=== PATIENT | female | born 1945 | race Hispanic/Latino ===

== ENCOUNTER 2019-01-01 14:06 | Inpatient (IN) | payer OTHER, MEDICARE | END 2019-01-07 17:30 | LOC: EDH 14:06 → EDHIP 16:25 → 4AH 17:25 | PROC: 0QS934Z Reposition Left Femoral Shaft with Internal Fixation Device, Percutaneous Approach (ICD-10-PCS; principal; 2019-01-01 19:38) | PROC: 0JBM0ZZ Excision of Left Upper Leg Subcutaneous Tissue and Fascia, Open Approach (ICD-10-PCS; 2019-01-01 19:38) | DX: S72.92XA Unspecified fracture of left femur, initial encounter for closed fracture (principal) ==

== ENCOUNTER → 2020-11-14 | Outpatient (CLI) | payer OTHER, MEDICARE ==
[~2020-11-14] MED LIST: SIMV-46 PO
== END | disposition home or self-care (01) ==
LOC: SHCH 09:42
PROVIDERS: ATTEND Internal Medicine Cardiovascular Disease
DX: R06.09 Other forms of dyspnea (principal)
CPT/HCPCS: 93306; 93356

== ENCOUNTER 2021-07-29 05:52 | Observation (INO) | payer OTHER, MEDICARE ==
[2021-07-25 10:19] LABS: BASOPHILS % (AUTO) 0.9 % (0.0-5.0); EOSINOPHILS % (AUTO) 1.4 % (0.0-8.0); HEMATOCRIT 38.6 % (36-48); LYMPHOCYTES % (AUTO) 29.6 % (21.0-51.0); MEAN CORPUSCULAR HEMOGLOBIN 32.3 pg (27.0-33.0); MEAN CORPUSCULAR HGB CONC 33.7 g/dL (32.0-36.0); MEAN CORPUSCULAR VOLUME 95.8 fL (79-99); MONOCYTES % (AUTO) 10.6 % (3.0-13.0); NEUTROPHILS % (AUTO) 57.3 % (40.0-77.0); PLATELET COUNT (AUTO) 229 K/uL (130-400); RED BLOOD CELL COUNT(AUTO) 4.03 MIL/uL (4.00-5.50); RED CELL DISTRIBUTION WIDTH 11.9 % (11.0-15.5); WHITE BLOOD COUNT (AUTO) 5.9 K/uL (4.8-10.8)
[2021-07-25 10:39] LABS: INR 1.04 (0.85-1.15); PROTHROMBIN TIME 11.3 SEC (9.6-11.6)
[2021-07-25 10:41] LABS: CREATININE 0.7 mg/dL (0.5-1.5); POTASSIUM 4.3 mmol/L (3.5-5.1)
[2021-07-25 11:13] LABS: APPEARANCE,URINE Clear (CLEAR); BILIRUBIN,URINE Negative (NEGATIVE); COLOR,URINE Yellow (YELLOW); GLUCOSE, URINE (UA) Negative (NEGATIVE); KETONES,URINE Negative (NEGATIVE); LEUKOCYTE ESTERASE ,URINE Small (NEGATIVE); NITRATE,URINE Negative (NEGATIVE); OCCULT BLOOD,URINE Negative (NEGATIVE); PH,URINE 5.5 (5.0-8.0); PROTEIN,URINE Negative (NEGATIVE); UROBILINOGEN,URINE 0.2 mg/dL (0.2-1.0)
[2021-07-25 12:02] LABS: BACTERIA,URINE Rare /HPF (None Seen); RBC,URINE None Seen /HPF (0-1); SQUAMOUS EPITHELIAL CELL,UR None Seen /HPF (0-2)
[2021-07-25 14:08] VITALS: BP 148/71
[2021-07-29] VITALS (20 sets, daily range): BP systolic 100–157; BP diastolic 51–87
[~2021-07-29 05:52] MED LIST changes: +AEC81 PO; +LISI20TA24 PO; +METO-408 PO
[2021-07-29] MEDS ORDERED: LACTATED RINGERS 1000ML 1,000 ML IV ONE (07:03)
[2021-07-29] MEDS: CEFAZOLIN SODIUM 1 GM VIAL IVP SCH ×5 (07:23→23:48)
[2021-07-29] MEDS ORDERED: CEFAZOLIN SODIUM 1 GM VIAL ONE (07:41)
[2021-07-29] MEDS ORDERED: TRANEXAMIC ACID 1000MG/10ML ONE (07:41)
[2021-07-29] MEDS ORDERED: PROPOFOL 10 MG/ML 20ML VIAL IV ONE (08:13)
[2021-07-29] MEDS ORDERED: ROCURONIUM 10MG/1ML SYR 10 MG/ML ML ONE (08:13)
[2021-07-29] MEDS ORDERED: SUCCINYLCHOLINE CHLORIDE 20 MG/ML 10 ML VIAL ONE (08:13)
[2021-07-29] MEDS ORDERED: LIDOCAINE HCL-MPF 1% 5ML AMP IJ ONE (08:13)
[2021-07-29] MEDS ORDERED: MIDAZOLAM HCL 1 MG/ML 2ML VIAL ONE (08:13)
[2021-07-29] MEDS ORDERED: FENTANYL CITRATE PF 50 MCG/1 ML 2ML VIAL ONE (08:14)
[2021-07-29] MEDS ORDERED: ROPIVACAINE 0.5% 5MG/ML 30ML IJ ONE (08:23)
[2021-07-29] MEDS ORDERED: EPHEDRINE SULFATE 50 MG/ML AMPULE ONE (08:43)
[2021-07-29] MEDS ORDERED: CEFAZOLIN SODIUM 1 GM VIAL IRRIG ONE (09:27)
[2021-07-29] MEDS ORDERED: ONDANSETRON 4MG INJ IVP PRN (10:00)
[2021-07-29] MEDS ORDERED: FERROUS FUMARATE 324 MG TABLET PO PRN (10:00)
[2021-07-29] MEDS ORDERED: DiphenhydrAMINE HCL 50 MG/ML VIAL IVP PRN (10:00)
[2021-07-29] MEDS ORDERED: POTASSIUM CHLORIDE 20MEQ/100ML 100 ML IV PRN (10:00)
[2021-07-29] MEDS ORDERED: TRAMADOL HCL 50 MG TABLET PO PRN (10:00)
[2021-07-29] MEDS ORDERED: LIDOCAINE HCL-MPF 1% 2ML VIAL IV PRN (10:00)
[2021-07-29] MEDS ORDERED: CALCIUM CARB 500MG PO PRN (10:00)
[2021-07-29] MEDS ORDERED: OXYCODONE HCL 5 MG TAB PO PRN ×2 (10:00)
[2021-07-29] MEDS: ACETAMINOPHEN 500 MG TABLET PO SCH ×3 (10:00→23:48)
[2021-07-29] MEDS ORDERED: KETOROLAC 15MG/ML VIAL (15MG/ML) IV PRN (10:00)
[2021-07-29] MEDS ORDERED: POTASSIUM CHLORIDE 10% ELIXIR 20 MEQ/15 ML UDCUP PO PRN (10:00)
[2021-07-29] MEDS: 0.9%NACL 1000ML 1,000 ML IV SCH ×3 (12:22→16:45)
[2021-07-29] MEDS ORDERED: ASPIRIN 81 MG EC TAB ONE (19:26)
[2021-07-29] MEDS ORDERED: SIMVASTATIN 20 MG TABLET ONE (19:26)
[2021-07-29] MEDS ORDERED: CELECOXIB 200 MG CAP ONE (19:26)
[2021-07-29] MEDS: ASPIRIN 81 MG EC TAB PO SCH (20:32)
[2021-07-29] MEDS: FAMOTIDINE 20MG TAB PO SCH (20:32)
[2021-07-29] MEDS: SIMVASTATIN 20 MG TABLET PO SCH (20:33)
[2021-07-29] MEDS: CELECOXIB 200 MG CAP PO SCH (20:33)
[2021-07-30] VITALS (7 sets, daily range): BP systolic 115–139; BP diastolic 51–76
[2021-07-30 04:12] LABS: HEMATOCRIT 35.1 % (36-48); MEAN CORPUSCULAR HEMOGLOBIN 31.2 pg (27.0-33.0); MEAN CORPUSCULAR HGB CONC 32.8 g/dL (32.0-36.0); MEAN CORPUSCULAR VOLUME 95.1 fL (79-99); RED BLOOD CELL COUNT(AUTO) 3.69 MIL/uL (4.00-5.50); RED CELL DISTRIBUTION WIDTH 11.9 % (11.0-15.5); WHITE BLOOD COUNT (AUTO) 8.6 K/uL (4.8-10.8)
[2021-07-30 04:19] LABS: CREATININE 0.9 mg/dL (0.5-1.5); POTASSIUM 3.8 mmol/L (3.5-5.1)
[2021-07-30] MEDS: KCL 20 MEQ ERTAB PO PRN ×2 (06:04→09:30)
[2021-07-30] MEDS: ASPIRIN 81 MG EC TAB PO SCH ×3 (09:00→19:51)
[2021-07-30] MEDS: POLYETHYLENE GLYCOL 3350 17 GM POWD.PACK PO SCH (09:30)
[2021-07-30] MEDS: LISINOPRIL 20 MG TABLET PO SCH (09:31)
[2021-07-30] MEDS: CELECOXIB 200 MG CAP PO SCH ×2 (09:32→19:52)
[2021-07-30] MEDS: ACETAMINOPHEN 500 MG TABLET PO SCH ×2 (09:32→17:23)
[2021-07-30] MEDS: FAMOTIDINE 20MG TAB PO SCH ×2 (09:32→19:52)
[2021-07-30] MEDS: CEFAZOLIN SODIUM 1 GM VIAL IVP SCH (18:04)
[2021-07-30] MEDS: SIMVASTATIN 20 MG TABLET PO SCH (19:51)
[2021-07-31] MEDS: ACETAMINOPHEN 500 MG TABLET PO SCH ×2 (03:32→08:44)
[2021-07-31 04:39] VITALS: BP 115/59
[2021-07-31 07:58] VITALS: BP 135/67
[2021-07-31] MEDS: LISINOPRIL 20 MG TABLET PO SCH (08:44)
[2021-07-31] MEDS: CELECOXIB 200 MG CAP PO SCH (08:44)
[2021-07-31] MEDS: ASPIRIN 81 MG EC TAB PO SCH ×2 (08:44→08:45)
[2021-07-31] MEDS: FAMOTIDINE 20MG TAB PO SCH (08:44)
[2021-07-31] MEDS: POLYETHYLENE GLYCOL 3350 17 GM POWD.PACK PO SCH (08:44)
[2021-07-31] MEDS ORDERED: METOPROLOL SUCCINATE 50 MG TAB.SR.24H PO SCH (09:00)
[2021-07-31] MEDS ORDERED: AEC81 PO (09:30)
[2021-07-31] MEDS ORDERED: TRAM50TA4 PO (09:30)
[2021-07-31 10:41] VITALS: BP 126/60
[2021-07-31 16:37] VITALS: BP 120/75
[2021-08-01] MEDS ORDERED: BISACODYL 10 MG SUPP.RECT RC PRN (10:00)
== END 2021-07-31 17:01 ==
LOC: DAH 05:52 → DAHIP 05:53 → 4BH 11:30
PROVIDERS: ADMIT Orthopaedic Surgery; ATTEND Orthopaedic Surgery
DX: M23.52 Chronic instability of knee, left knee (principal); Z20.822 Contact with and (suspected) exposure to COVID-19; T84.098A Other mechanical complication of other internal joint prosthesis, initial encounter; M67.20 Synovial hypertrophy, not elsewhere classified, unspecified site; M23.8X2 Other internal derangements of left knee; D62 Acute posthemorrhagic anemia; E78.5 Hyperlipidemia, unspecified; I10 Essential (primary) hypertension; I25.10 Atherosclerotic heart disease of native coronary artery without angina pectoris; Z96.653 Presence of artificial knee joint, bilateral; Z79.899 Other long term (current) drug therapy
CPT/HCPCS: 20680; 27335; 27486; 36415 ×2; 80048 ×2; 81001; 85025; 85027; 85610; 87088; 87635; 87641; 96374; 96376; 97039 ×5; 97116 ×5; 97161; 97530 ×4; A4215; A4221; A4222; A4223; A4649 ×4; A4663; A4930 ×2; A9272; C1776; C9803; G0378 ×51; J0330; J0690 ×5; J2250; J2704; J2795; J3010; J3490 ×3; J7120 ×2

== ENCOUNTER → 2022-05-14 | Outpatient (CLI) | payer MEDICARE ==
[~2022-05-14] MED LIST changes: +TRAM50TA4 PO
== END | disposition home or self-care (01) ==
LOC: RAH 15:50
PROVIDERS: ATTEND Internal Medicine
DX: M19.011 Primary osteoarthritis, right shoulder (principal); M79.601 Pain in right arm
CPT/HCPCS: 73030

== ENCOUNTER → 2023-09-16 | Outpatient (CLI) | payer OTHER | END | disposition home or self-care (01) | LOC: RAH 13:40 | PROVIDERS: ATTEND Orthopaedic Surgery | DX: Z96.652 Presence of left artificial knee joint (principal) | CPT/HCPCS: 73700 ==

== ENCOUNTER 2024-05-18 07:51 | Emergency (ER) | payer OTHER, MEDICARE ==
[~2024-05-18] VITALS: Ht 170.2 cm; Wt 77.1 kg
[2024-05-18 08:28] LABS: BASOPHILS # (AUTO) 0.03 K/uL (0.00-0.20); BASOPHILS % (AUTO) 0.3 % (0.0-5.0); EOSINOPHILS # (AUTO) 0.11 K/uL (0.00-0.70); EOSINOPHILS % (AUTO) 1.1 % (0.0-8.0); HEMATOCRIT 39.9 % (36-48); IMMATURE GRANULOCYTE ABSOLUTE 0.03 K/uL (0-1); LYMPHOCYTES # (AUTO) 2.3 K/uL (1.0-4.8); LYMPHOCYTES % (AUTO) 22.2 % (21.0-51.0); MEAN CORPUSCULAR HEMOGLOBIN 32.6 pg (27.0-33.0); MEAN CORPUSCULAR HGB CONC 33.3 g/dL (32.0-36.0); MEAN CORPUSCULAR VOLUME 97.8 fL (79-99); MONOCYTES # (AUTO) 0.3 K/uL (0.1-1.0); MONOCYTES % (AUTO) 2.7 % (3.0-13.0); NEUTROPHILS # (AUTO) 7.4 K/uL (1.8-7.7); NEUTROPHILS % (AUTO) 73.4 % (40.0-77.0); PLATELET COUNT (AUTO) 233 K/uL (130-400); RED BLOOD CELL COUNT(AUTO) 4.08 MIL/uL (4.00-5.50); RED CELL DISTRIBUTION WIDTH 11.6 % (11.0-15.5); WHITE BLOOD COUNT (AUTO) 10.1 K/uL (4.8-10.8)
[2024-05-18] MEDS: 0.9% NACL 500ML IV.SOLN 500 ML IV SCH (08:28)
[2024-05-18 08:54] LABS: ALBUMIN 3.9 g/dL (3.5-5.0); BILIRUBIN,TOTAL 0.8 mg/dL (0.2-1.0); CREATININE 1.1 mg/dL (0.5-1.0); POTASSIUM 3.8 mmol/L (3.5-5.1); TOTAL PROTEIN, SERUM 7.1 g/dL (6.0-8.3)
[2024-05-18] MEDS: acetaMINOPHEN 500 MG TABLET PO ONE (08:56)
[2024-05-18] MEDS: 0.9%NACL 1000ML 1,000 ML IV SCH (09:53)
[2024-05-18] MEDS: ONDANSETRON 4MG INJ IVP ONE (09:53)
[2024-05-18] MEDS: cefTRIAXone 1G VIAL IVPB ONE (09:53)
[2024-05-18] MEDS ORDERED: ACID1GRA4 PO (12:35)
[2024-05-18] MEDS ORDERED: METR-172 PO (12:35)
[2024-05-18] MEDS ORDERED: ONDA-243 PO (12:35)
[2024-05-18 13:11] VITALS: BP 125/47; PULSE 63; RESP 18; O2SAT 98
== END 2024-05-18 13:53 | disposition home or self-care (01) ==
LOC: EDH 07:51
DX: A05.9 Bacterial foodborne intoxication, unspecified (principal); E86.0 Dehydration; K52.29 Other allergic and dietetic gastroenteritis and colitis; I95.9 Hypotension, unspecified; E78.00 Pure hypercholesterolemia, unspecified; I10 Essential (primary) hypertension; Z90.710 Acquired absence of both cervix and uterus; Z79.899 Other long term (current) drug therapy
CPT/HCPCS: 99285; 96374; 96375; 84484; 80053; 83690; 85025; 87040; 83605 ×2; 36415; 74018; 93005; J0696; J2405

== ENCOUNTER → 2025-02-14 | Outpatient (CLI) | payer OTHER, MEDICAID ==
[~2025-02-14] MED LIST changes: +ACID1GRA4 PO; +ATOR40TA69 PO; +IBUP-2076 PO; +METR-172 PO; +ONDA-243 PO
--- NOTE | 2025-02-14 16:19 | HMCIMG ---
CT UPPER EXT W/O CONTRAST HISTORY: Right shoulder bone disorder COMPARISON: None TECHNIQUE: Multiple sequential axial images of the right shoulder were obtained including post processing sagittal and coronal reconstruction images. Patient was not given contrast through intravenous route. FINDINGS: Erosive changes are seen with lytic lesion in the medial aspect of the right proximal humerus near the region of glenohumeral joint measuring 16 x 15 mm. Bone osteopenia is seen. Joint space narrowing is seen. No acute displaced fracture or dislocation is seen. IMPRESSION: 1. Lucent lesion measuring 16 x 15 mm at the inferior aspect of the right humerus in the region of glenohumeral joint. No acute displaced fracture or dislocation is seen. Degenerative changes are seen. CT was performed with one or more following dose reduction techniques: automated exposure control, adjustment of the mA and kv according to patient's size, or use of a iterative reconstruction technique.
== END | disposition home or self-care (01) ==
LOC: RAH 10:23
PROVIDERS: ATTEND Orthopaedic Surgery
DX: M19.011 Primary osteoarthritis, right shoulder (principal); M85.88 Other specified disorders of bone density and structure, other site; M25.811 Other specified joint disorders, right shoulder
CPT/HCPCS: 73200

== ENCOUNTER 2025-05-02 05:57 | Observation (INO) | payer OTHER, MEDICAID ==
[2025-05-01 10:57] LABS: IMMATURE GRANULOCYTE ABSOLUTE 0.02 K/uL (0-1); NUCLEATED RED BLOOD CELLS 0.0 % (0.0-0.19); PLATELET COUNT (AUTO) 215 K/uL (130-400); RED BLOOD CELL COUNT(AUTO) 3.81 MIL/uL (4.00-5.50); RED CELL DISTRIBUTION WIDTH 11.9 % (11.0-15.5); WHITE BLOOD COUNT (AUTO) 6.7 K/uL (4.8-10.8)
[2025-05-01 11:01] LABS: APPEARANCE,URINE CLEAR (CLEAR); GLUCOSE, URINE (UA) NEGATIVE (NEGATIVE); LEUKOCYTE ESTERASE ,URINE NEGATIVE Leu/uL (NEGATIVE); NITRATE,URINE NEGATIVE (NEGATIVE); OCCULT BLOOD,URINE NEGATIVE (NEGATIVE)
[2025-05-01 11:02] LABS: ADD UA MICROSCOPIC NO
[2025-05-01 11:05] LABS: CREATININE 0.6 mg/dL (0.5-1.0); GLOMERULAR FILTR. RATE CALC 90.0 mL/min (>90); GLUCOSE,RANDOM 104.0 mg/dL (70-105); SODIUM SERUM 143.0 mmol/L (136-145); UREA NITROGEN, BLOOD 11.0 mg/dL (7-18)
[2025-05-01 11:25] LABS: INR 1.0 (0.85-1.15)
[2025-05-01 11:41] VITALS: BP 142/55; PULSE 59; RESP 16; TEMP 97.9
[2025-05-02] VITALS (23 sets, daily range): BP systolic 108–155; BP diastolic 70–91; PULSE 56–105; RESP 15–20; TEMP 97.4–98.5; O2SAT 94–96
[~2025-05-02] VITALS: Ht 157.5 cm; Wt 67.9 kg
--- NOTE | 2025-05-02 06:40 | EKG ---
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
[2025-05-02] MEDS ORDERED: GLYCOPYRROLATE 0.2 MG/ML 5 ML VIAL ONE (07:16)
[2025-05-02] MEDS ORDERED: NEOSTIGMINE METHYLSULFATE 1MG/ML IV ONE (07:16)
[2025-05-02] MEDS ORDERED: LIDOCAINE PF 100MG/5ML (2%) SYRINGE 5ML ONE (07:16)
[2025-05-02] MEDS ORDERED: SUCCINYLCHOLINE CHLORIDE 20 MG/ML 10 ML VIAL ONE (07:16)
[2025-05-02] MEDS ORDERED: MIDAZOLAM HCL 1 MG/ML 2ML VIAL ONE (07:17)
[2025-05-02] MEDS: TRANEXAMIC ACID 1000MG/10ML ONE ×2 (08:20→11:52)
--- NOTE | 2025-05-02 11:23 | OP ---
Operative Note: DATE OF PROCEDURE: 05/02/25 SURGEON: STEVEN QUINN MD ELECTRICIAN WIRING: [Brad Greer [facility]; Yadi Contreras CFA] ANESTHESIA: [General anesthesia plus regional block] ANESTHESIOLOGIST/SWITCHBOARD RECEPTIONIST: [Rock Smith CRNA] PREOPERATIVE DIAGNOSIS: [Right shoulder osteoarthritis, avascular necrosis humeral head] POSTOPERATIVE DIAGNOSIS: [Same] IMPLANTS: [Biomet comprehensive shoulder. Humeral stem size 12 mm. Humeral head size 42 x 19 mm. Glenoid size 3 with a titanium glenoid peg] PROCEDURE: [Primary right total shoulder arthroplasty] ESTIMATED BLOOD LOSS: [150 mL] INDICATIONS: [The patient is an 80-year-old female with a long history of pain to the right shoulder that has been present and has been treated conservatively. The patient had an study when she came to our office and we noticed that there was what seems to be a lesion in the inferior hemisphere of the articular surface. Further started revealed that this was a necrotic area of bone compatible with avascular necrosis. Patient has been admitted for a primary versus reverse total shoulder arthroplasty. Procedure understood, risks, b enefits and possible complications and she agreed to sign the consent form] DESCRIPTION OF PROCEDURE: [After adequate general anesthesia was achieved and regional block obtained the patient was placed in the beach chair position and the right upper extremity was prepped and draped in the usual manner. After identification of the bony landmarks and incision was carried down in the anterior aspect of the shoulder following the deltopectoral line through the skin followed by dissection of the subcutaneous tissue. After identification of the cephalic vein the deltopectoral space was developed and we proceeded to dissect the 2 muscles and retract them to enter into the space identifying the clavipectoral fascia which was incised just lateral to the short head of the biceps and directed superiorly and inferiorly. With the arm in a slight abduction and with a Cao retractor elevating the deltoid muscle were able to identify the subscapularis tendon and the insertion of the pectoralis muscle at the humerus as well as the circumflex vessels in the inferior border of the subscapularis. The vessels were ligated with two #1 Vicryl stitches at the most lateral aspect of the subscapularis. The 1 cm superior portion of the pectoralis tendon insertion was cut leaving a small cuff of tendon and we then proceeded to open the long head of the biceps tendon sheath pulling then the tendon and applying two #2 Ethibond sutures through it and then tying it to the pectoralis cuff for a soft tissue tenodesis. The tendon was then cut proximal to this tenodesis and we followed the tendon proximally cutting through the tendon sheath all the way to the bicipital groove removing then the tendon at this level. At this point we proceeded then to peel of the subscapularis tendon of the lesser tuberosity while at the same time externally rotating the arm exposing the humeral head and proceeded with the dissection all the way to the posterior aspect of the humeral head using the Bovie cautery. A tag suture with #1 Ethibond stitch was applied to the superolateral corner of the subscapularis previous to the detachment. At this point the humeral head was presented through the wound by externally rotating the arm further and extending it. We then proceeded to make a starting hole in the top of the humeral head entering the canal and then we proceeded to ream out to the appropriate size leaving the last reamer in place and then applying the humeral head cutting guide with 40 degree retroversion and after the guide was secured with pins we proceeded to remove the intramedullary reamer and with the use of the oscillating saw we proceeded to remove the humeral head. We then proceeded to use the humeral broaches from the smallest to the chosen diameter to obtain an adequate fit leaving the last broach in place. Then retractors were applied anteriorly and posteroinferiorly to the glenoid keeping the arm externally rotated and after the glenoid was exposed we proceeded to remove the remnants of the labrum and we found the center of the glenoid with the guide and made a drill hole with a guidepin. Then we proceeded to apply the reamer and clean the glenoid and made the surface even and expose cortical cancellus bone. This was followed by application of the glenoid guide and first we proceeded to made the central hole for the titanium peg of the glenoid and then another guide was applied in the center hole and the three peripheral holes, two distal and one superior were then drilled. The trial glenoid was inserted and noted to fit adequately and this was then removed. The glenoid was irrigated while cement was mixed in the back table and after the surface was dried we proceeded to applied a small amount of cement in each one of the peripheral holes and then the final component was inserted obtain an adequate fixation. We allowed for the cement to dry by holding pressure against the component. Once the glenoid dried we proceeded to expose again the proximal humerus and the chosen humeral head was inserted to the trial stem and the shoulder was reduced obtaining a stable and congruent shoulder. X-rays revealed an adequate sized for the humeral stem, adequate position of the humeral head and congruency. We then dislocated the shoulder and the humeral head was removed and we presented the proximal humerus and the humeral stem was removed the humeral canal was then irrigated with antibiotic solution with jet lavage and the final component was then inserted previous application of #2 Ethibond looped sutures in the anterior rim for future closure of the subscapularis. Once the stem was in position we proceeded then to apply the humeral head and tap it against the stem and the shoulder was reduced. X-rays taken reveal an adequate position of the components and after further irrigation of the joint with Betadine solution first and then with antibiotic irrigation with jet lavage we proceeded then to reapproximate the subscapularis tendon with the loop sutures with 2-0 Ethibond underneath there was closed with three #1 Ethibond sutures. A drain was placed through a separate stab incision and the deltopectoral interval was then closed with #1 Vicryl interrupted stitches followed by closure of the subcutaneous tissue with #2-0 Monocryl inverted stitches and the skin was closed with 3-0 Monocryl subcuticularly. Dermabond was applied to cover the incision and a soft dressing was then applied. A separate soft dressing was applied around the drain which was then connected to a reservoir. The drapes were then removed, the patient was placed in an arm sling and then placed in the supine position and transferred to a hospital bed and taken to recovery room for follow-up by anesthesia. There were no complications during the procedure.] STEVEN QUINN MD May 02, 2025 11:23
[2025-05-02] MEDS ORDERED: PoTASSium chl 10% ELIXIR 20MEQ 20 MEQ/15 ML UDCUP PO PRN (11:30)
[2025-05-02] MEDS ORDERED: CALCIUM CARB 500MG PO PRN (11:30)
[2025-05-02] MEDS ORDERED: FE FUMARATE/FA/MV, MIN COMB#15 1 TAB PO PRN (11:30)
[2025-05-02] MEDS ORDERED: PoTASSium chloRIDE 20MEQ ER 20 MEQ ERTAB PO PRN (11:30)
--- NOTE | 2025-05-02 12:25 | NUR ---
PATIENT ARRIVED TO ROOM 331 AT 1225. PATIENT ON 3L NC O2 93%. PATIENT ALERT AND ORIENTED. NO COMPLAINTS OF PAIN UPON ARRIVAL.
--- NOTE | 2025-05-02 16:12 | NUR ---
PT eval attempted. Pt still with post op delirium. Pt reports she wants to eat and doesnt have pain. PT sits patient EOB and patient slumps over into bed. Unable to continue session. Back to bed with nursing assist. Pt stable and having liquids now. Pt wants to DC home. At this time PT recommends rehab as patient lives alone and was not able to tolerate further intervention at this time.
[2025-05-02] MEDS: HYDROcodone/APAP 5/325 1 TAB TABLET PO PRN (18:08)
[2025-05-02] MEDS: FAMOTIDINE 20MG TAB PO SCH (20:28)
[2025-05-02] MEDS: SUGAMMADEX SODIUM 200 MG/2 ML VIAL IV ONE (20:29)
[2025-05-02] MEDS: LACTATED RINGERS 1000ML 1,000 ML IV ONE (20:29)
[2025-05-02] MEDS: FAMOTIDINE 20MG VIAL IV ONE (20:30)
[2025-05-02] MEDS: 0.9%NACL 1000ML 1,000 ML IV SCH (20:30)
[2025-05-02] MEDS ORDERED: ASPIRIN 81MG CHEW TAB PO SCH (21:00)
[2025-05-03] VITALS (10 sets, daily range): BP systolic 126–152; BP diastolic 58–83; PULSE 51–74; RESP 16–20; TEMP 97.2–98.4; O2SAT 95–97
[2025-05-03 05:42] LABS: NUCLEATED RED BLOOD CELLS 0.0 % (0.0-0.19); PLATELET COUNT (AUTO) 167.0 K/uL (130-400); RED BLOOD CELL COUNT(AUTO) 3.22 MIL/uL (4.00-5.50); RED CELL DISTRIBUTION WIDTH 11.8 % (11.0-15.5); WHITE BLOOD COUNT (AUTO) 8.6 K/uL (4.8-10.8)
[2025-05-03 05:57] LABS: CREATININE 0.6 mg/dL (0.5-1.0); GLOMERULAR FILTR. RATE CALC 90.0 mL/min (>90); GLUCOSE,RANDOM 112.0 mg/dL (70-105); SODIUM SERUM 138.0 mmol/L (136-145); UREA NITROGEN, BLOOD 13.0 mg/dL (7-18)
--- NOTE | 2025-05-03 06:30 | NUR ---
PATIENT CONTINUES WITH SOME INTERMITTED CONFUSION. PATIENT THINKS THAT SHE IS AT HOME AND WAS TRYING TO GET OUT OF BED BUT DOES NOT HAVE THE STRENGTH TO. PT WAS NOT ABLE TO WORK WITH PATIENT YESTERDAY DUE TO HER DELIRIUM AFTER SURGERY.
--- NOTE | 2025-05-03 07:54 | PN ---
This morning patient is awake alert and oriented. Her postoperative delirium has resolved. She is aware of person place and time. Son is at bedside. Vital signs have remained stable. She is afebrile. Voiding on her own. Laboratory results reviewed. Noted to have a drop in hemoglobin and hematocrit as expected. We will continue to observe and treat per protocol. Reinforced incentive spirometry. Operative findings discussed with the patient. Ice present to operative site. The drain is intact and overnight about 40 mL of sanguinous fluid obtained. Able to open and close hand on command and has full range of motion of the wrist. Anticipated discharge goal is home health/OT. Pending therapy this morning. Assessment: Status post right primary shoulder arthroplasty. Acute postoperative blood loss anemia. Plan: Continue with Dr. Mahoney primary shoulder arthroplasty protocol and discharge planning. Acute postoperative blood loss anemia addressed with the protocol as necessary Vitals/Labs Vital Signs Date Time Temp Pulse Resp B/P (MAP) Pulse Ox O2 Delivery O2 Flow Rate FiO2 05/03/25 07:31 97.2 65 16 128/58 96 Room Air 05/03/25 06:43 21 05/03/25 00:30 3.0 Laboratory Tests 05/03/25 05:05 Medications Current Medications Cefazolin Sodium 2 gm STK-MED ONCE .ROUTE Last administered on 05/02/25at 08:30; Start 05/02/25 at 06:15; Stop 05/02/25 at 06:15; Status DC Lactated Ringer's 1,000 ml @ As Directed STK-MED ONCE IV; Start 05/02/25 at 06:15; Stop 05/02/25 at 06:15; Status DC Lidocaine HCl 100 mg STK-MED ONCE .ROUTE; Start 05/02/25 at 07:16; Stop 05/02/25 at 07:16; Status DC Ondansetron HCl 4 mg STK-MED ONCE .ROUTE; Start 05/02/25 at 07:16; Stop 05/02/25 at 07:16; Status DC Dexamethasone Sodium Phosphate 10 mg STK-MED ONCE .ROUTE; Start 05/02/25 at 07:16; Stop 05/02/25 at 07:16; Status DC Succinylcholine Chloride 200 mg STK-MED ONCE .ROUTE; Start 05/02/25 at 07:16; Stop 05/02/25 at 07:16; Status DC Glycopyrrolate 1 mg STK-MED ONCE .ROUTE; Start 05/02/25 at 07:16; Stop 05/02/25 at 07:16; Status DC Propofol 200 mg STK-MED ONCE IV; Start 05/02/25 at 07:16; Stop 05/02/25 at 07:16; Status DC Neostigmine Methylsulfate 10 mg STK-MED ONCE IV; Start 05/02/25 at 07:16; Stop 05/02/25 at 07:16; Status DC Rocuronium [place] 50 mg STK-MED ONCE .ROUTE; Start 05/02/25 at 07:16; Stop 05/02/25 at 07:16; Status DC Fentanyl Citrate 100 mcg STK-MED ONCE .ROUTE; Start 05/02/25 at 07:16; Stop 05/02/25 at 07:17; Status DC Midazolam HCl 2 mg STK-MED ONCE .ROUTE; Start 05/02/25 at 07:17; Stop 05/02/25 at 07:17; Status DC Ketamine HCl 50 mg STK-MED ONCE .ROUTE; Start 05/02/25 at 07:20; Stop 05/02/25 at 07:20; Status DC Phenylephrine HCl 10 mg STK-MED ONCE IV; Start 05/02/25 at 07:21; Stop 05/02/25 at 07:21; Status DC Ropivacaine 150 mg STK-MED ONCE .ROUTE; Start 05/02/25 at 07:21; Stop 05/02/25 at 07:22; Status DC Acetaminophen 100 ml @ As Directed STK-MED ONCE .ROUTE; Start 05/02/25 at 07:34; Stop 05/02/25 at 07:40; Status DC Famotidine 20 mg STK-MED ONCE IV; Start 05/02/25 at 07:35; Stop 05/02/25 at 07:40; Status DC Tranexamic Acid 1,000 mg STK-MED ONCE .ROUTE Last administered on 05/02/25at 08:20; Start 05/02/25 at 07:49; Stop 05/02/25 at 07:49; Status DC Cefazolin Sodium 1 gm STK-MED ONCE .ROUTE Last administered on 05/02/25at 09:01; Start 05/02/25 at 08:17; Stop 05/02/25 at 08:17; Status DC Rocuronium [place] 50 mg STK-MED ONCE .ROUTE; Start 05/02/25 at 08:40; Stop 05/02/25 at 08:40; Status DC Fentanyl Citrate 100 mcg STK-MED ONCE .ROUTE; Start 05/02/25 at 10:03; Stop 05/02/25 at 10:03; Status DC Ephedrine Sulfate 50 mg STK-MED ONCE .ROUTE; Start 05/02/25 at 10:53; Stop 05/02/25 at 10:53; Status DC Phenylephrine HCl 10 mg STK-MED ONCE IV; Start 05/02/25 at 11:19; Stop 05/02/25 at 11:19; Status DC Sodium Chloride 1,000 ml @ 80 mls/hr [id number] IV; Start 05/02/25 at 11:30; Stop 05/03/25 at 11:29 Polyethylene Glycol 17 gm DAILY PO; Start 05/03/25 at 09:00; Stop 06/02/25 at 08:59 Bisacodyl 10 mg DAILY PRN RC; Start 05/05/25 at 11:30; Stop 06/04/25 at 11:29 Aspirin 325 mg BID PO; Start 05/03/25 at 09:00; Stop 06/02/25 at 08:59 Ketorolac Tromethamine 15 mg Q6H PRN IV Last administered on 05/03/25at 03:04; Start 05/02/25 at 11:30; Stop 05/07/25 at 11:29 Famotidine 20 mg Q24H PO Last administered on 05/02/25at 20:28; Start 05/02/25 at 21:00; Stop 06/01/25 at 20:59 Multivitamins/Iron 1 tab DAILY PRN PO; Start 05/02/25 at 11:30; Stop 06/01/25 at 11:29 Temazepam 15 mg HS PRN PO; Start 05/02/25 at 11:30; Stop 06/01/25 at 11:29 Ondansetron HCl 4 mg Q6H PRN IVP; Start 05/02/25 at 11:30; Stop 06/01/25 at 11:29 Calcium Carbonate 500 mg Q12H PRN PO; Start 05/02/25 at 11:30; Stop 06/01/25 at 11:29 Diphenhydramine HCl 25 mg Q6H PRN IVP; Start 05/02/25 at 11:30; Stop 06/01/25 at 11:29 Cefazolin Sodium 2 gm Q8H IVP Last administered on 05/03/25at 00:44; Start 05/02/25 at 16:30; Stop 05/03/25 at 00:31; Status DC Docusate Sodium 100 mg BID PO Last administered on 05/02/25at 20:28; Start 05/02/25 at 21:00; Stop 06/01/25 at 20:59 Potassium Chloride 100 ml @ 100 mls/hr AD PRN IV; Start 05/02/25 at 11:30; Stop 06/01/25 at 11:29 Potassium Chloride 20 meq AD PRN PO; Start 05/02/25 at 11:30; Stop 06/01/25 at 11:29 Potassium Chloride 20 meq AD PRN PO; Start 05/02/25 at 11:30; Stop 06/01/25 at 11:29 Acetaminophen/ Hydrocodone Bitart Q4H PRN PO Last administered on 05/03/25at 01:12; Start 05/02/25 at 11:30; Stop 05/07/25 at 11:29 Aspirin 81 mg BID PO; Start 05/02/25 at 21:00; Stop 05/02/25 at 13:26; Status DC Tranexamic Acid 1,000 mg STK-MED ONCE .ROUTE Last administered on 05/02/25at 11:52; Start 05/02/25 at 11:43; Stop 05/02/25 at 11:44; Status DC Atorvastatin Calcium 40 mg AM PO; Start 05/03/25 at 09:00; Stop 06/02/25 at 08:59 Lisinopril 20 mg DAILY PO; Start 05/03/25 at 09:00; Stop 06/02/25 at 08:59 LEXI NAPIER NP May 03, 2025 07:54
[2025-05-03] MEDS: ASPIRIN 325MG TAB PO SCH (08:32)
[2025-05-03] MEDS: LISINOPRIL 20 MG TABLET PO SCH (08:32)
--- NOTE | 2025-05-03 08:45 | NUR ---
MOP CM MET WITH PT INITIAL ASSESSMENT DONE. PATIENT IS SEMI-INDEPENDENT PRIOR TO SURGERY, LIVES AT HOME WITH HER SON. PT HAS PROVIDER 4HRS DAILY AT HOME. DENIES ANY EQUIPMENT/SERVICES. FEELS SAFE TO GO BACK HOME, DOES NOT DRIVE, SON ABLE TO ASSIST WITH TRANSPORTATION AND NEEDS NECESSARY. DISCUSSED MD RECOMMENDATIONS FOR HOME W/HOME HEALTH FOR PT/OT. PT AGREEABLE, INFORMED PT DR QUINN RECOMMENDED [facility], BUT IT IS NOT IN [facility] W/PT'S INSURANCE, GIVEN I IN [facility]. CONSENT SIGNED [facility] FOR [facility]. [facility] ONCE APPROVED. CM TO CONTINUE TO FOLLOW UP. Addendum: 05/03/25 at 1213 by SRI BELTRÁN LVN Amended: Links added.
--- NOTE | 2025-05-03 13:17 | NUR ---
NOTIFIED DIONNE ELLIOTT FOR DR QUINN ,PATIENT HEMOVAC COMPLETELY DISCONNECTED , PER PATIENT STATED WHEN SHE WAS UP IN CHAIR . NO FURTHER BLEEDING ,CLEANED SITE , APPLIED 4X4 AND SECURED WITH TAP E. HEMOVAC TIP INTACT
--- NOTE | 2025-05-03 21:57 | PN ---
SUBJECTIVE: The patient is status post right shoulder surgery. OBJECTIVE: GENERAL: She is currently comfortable, not in distress. She is awake, alert, and oriented in person, time, and place. VITAL SIGNS: In the chart. HEENT: Normocephalic, atraumatic. LUNGS: Clear to auscultation. HEART: S1, S2 are distant. ABDOMEN: Soft and nontender. EXTREMITIES: No clubbing or cyanosis. LABORATORY DATA: Reviewed. ASSESSMENT AND PLAN: * Right shoulder surgery. Continue with DVT prophylaxis, GI prophylaxis, and pulmonary prophylaxis. * Hypertension. Continue lisinopril. * Dyslipidemia. Continue atorvastatin. * Pain management as per Orthopedics. * Anemia, mild, postoperative. Continue with iron supplement. * Follow up in a.m. with results. DOS: 05/03/2025 TID: [id number] RECEIPT: [id number] MTDD
[2025-05-04 03:52] VITALS: BP 152/57; PULSE 80; RESP 16; TEMP 98.4
[2025-05-04 07:52] VITALS: BP 124/68; PULSE 72; RESP 18; TEMP 98.3
[2025-05-04 08:00] VITALS: O2SAT 98
[2025-05-04 11:15] VITALS: BP 118/67; PULSE 84; RESP 16; TEMP 97.9
[2025-05-04] MEDS ORDERED: HYDR-4060 PO (16:36)
--- NOTE | 2025-05-04 16:52 | DS ---
DISCHARGE SUMMARY [Date of admission: 05/02/2025 Date of discharge: 05/04/2025 Final diagnosis: Right Shoulder osteoarthritis, humeral head avascular necrosis. Surgical procedures: Primary right total shoulder arthroplasty on 05/02/2025 Summary of History and Physical: The patient is an 80 year-old female with history of severe arthrosis to the shoulder secondary to that has been present for several years and has been treated conservatively with no longer adequate response to treatment. The patient is being admitted for a primary right shoulder arthroplasty. Previous medical history: Heart disease. Hypertension. Dyslipidemia Previous surgical history: Left total knee arthroplasty, right total knee arthroplasty, left knee fracture ORIF. left knee arthrotomy, synovectomy and liner exchange, right hip fracture Family history: No relevant for present illness Social history: Negative for use of tobacco or alcohol. Allergies: NKDA. Review of system: Negative on admission Hospital course: The patient was admitted and taken to the operating room for a primary shoulder arthroplasty, procedure that went uneventful. Postoperatively the patient remained hemodynamically stable and afebrile. The patient received antibiotic and anticoagulation prophylaxis as per protocol. The patient was evaluated by physical therapy and started rehabilitation treatment with gentle range of motion exercises to the shoulder. The patient was also evaluated by case management and arrangements were made for discharge. The patient tolerated diet well. On postop day #2 all the arrangements were completed. The drain was removed accidentally in postop day 1. The dressing was intact at the time of discharge and and the patient was dismissed. Condition on discharge: Good Disposition: The patient will be dismissed home with home health. Follow-up will be done at the office in 3 weeks. The patient is to continue with therapy and rehabilitation at home. Continue taking pain medication as instructed as well as home medications as instructed and continue with pre admission diet.] STEVEN QUINN MD ] STEVEN QUINN MD May 04, 2025 16:51
--- NOTE | 2025-05-04 17:30 | NUR ---
CALLED TO GIVE REPORT TO [facility] THROUGH ANSWERING SERVICE . PENDING CALL BACK . DISCHARGE INSTRUCTION PROVIDED TO PATIENT VERBALIZED UNDERSTANDING ..
--- NOTE | 2025-05-04 17:38 | NUR ---
CALL BACK FROM ANGELICA FROM [facility] . REPORT GIVEN
--- NOTE | 2025-05-05 08:08 | PN ---
SUBJECTIVE: The patient is tolerating physical therapy. OBJECTIVE: GENERAL: Comfortable in bed, not in distress. VITAL SIGNS: In the chart. HEENT: Normocephalic, atraumatic. LUNGS: Clear to auscultation. HEART: S1, S2 are distant. ABDOMEN: Soft, nontender. EXTREMITIES: Right shoulder is with immobilizer in place. LABORATORY DATA: Reviewed. ASSESSMENT AND PLAN: * Right shoulder osteoarthritis with humeral head avascular necrosis status post total shoulder arthroplasty. Continue recommendations by Orthopedics, DVT prophylaxis, GI prophylaxis, pulmonary prophylaxis. * Hypertension. Continue current medications. * Dyslipidemia. Continue current medications. * Plan to discharge when cleared by Orthopedics. Follow up in my office within the next 24 to 48 hours. DOS: 05/04/2025 TID: [id number] RECEIPT: [id number] MTDD
== END 2025-05-04 18:30 | disposition home or self-care (01) ==
LOC: DAH 05:57 → DAHIP 05:58 → DAH 05:58 → 4AH 12:25
PROVIDERS: ADMIT Orthopaedic Surgery; ATTEND Orthopaedic Surgery
DX: M19.011 Primary osteoarthritis, right shoulder (principal); I10 Essential (primary) hypertension; E78.5 Hyperlipidemia, unspecified; M87.9 Osteonecrosis, unspecified; R79.1 Abnormal coagulation profile; Z96.653 Presence of artificial knee joint, bilateral; Z79.899 Other long term (current) drug therapy
CPT/HCPCS: 80048 ×2; 85025; 85610; 87086; 81003; 36415 ×2; 87641; 23472; 96365; 96366 ×2; 96375 ×2; 88311; 88304; 73030; 97161; 97530 ×6; 93005; 96376; 85027; 97116 ×4; C1713 ×2; C1776 ×4; G0378 ×55; A4663; J7030; J7120; J3490 ×8; J3010 ×2; J0690 ×4; J1100; J0330; J2003; J2250; J2704; J2405 ×2; J2710; J2795; J1885 ×3; J2371 ×2; A6206; A6204; A4649 ×4; A4930; A4215; A4223 ×2; A4213; A4222; A4221; A4216

== ENCOUNTER → 2025-06-09 | Outpatient (CLI) | payer OTHER, MEDICAID ==
[~2025-06-09] MED LIST changes: -ACID1GRA4 PO; -AEC81 PO; +HYDR-4060 PO; -IBUP-2076 PO; -METO-408 PO; -METR-172 PO; -ONDA-243 PO; -SIMV-46 PO; -TRAM50TA4 PO
--- NOTE | 2025-06-09 14:19 | HMCIMG ---
Exam: NONCONTRAST CT BRAIN REASON: Headache, unspecified. COMPARISON: None. TECHNIQUE: Images are obtained from vertex to the skull base. The exam was performed without IV contrast. FINDINGS: There is normal appearing brain parenchyma. There are no focal mass lesions. There is is no evidence of intracranial hemorrhage or acute stroke. Ventricles and sulci appear normal. Posterior fossa and brainstem structures are unremarkable. Paranasal sinuses and remaining extracranial soft tissues appear normal as well.There is global atrophy is consistent with patient's chronological age. IMPRESSION: 1. No acute intracranial process. CT was performed with one or more following dose reduction techniques: automated exposure control, adjustment of the mA and kv according to patient's size, or use of a iterative reconstruction technique.
== END | disposition home or self-care (01) ==
LOC: RAH 13:08
PROVIDERS: ATTEND Internal Medicine
DX: R51.9 Headache, unspecified (principal)
CPT/HCPCS: 70450